=== PATIENT | male | born 1960 | race Caucasian/White ===

== ENCOUNTER 2024-02-08 19:47 | Emergency (ER) | payer OTHER, SELFPAY ==
[2024-02-08 19:48] VITALS: BP 121/72
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
[2024-02-08] MEDS: TYLENOL 1000 MG PO (23:21)
[2024-02-08 23:50] LABS: % Basophils 0.4 % (0-2); % Eosinophils 1.5 % (0-6); % Immature Granulocytes 0.3 % (0-0.5); % Monocytes 5.9 % (1.7-9.3); % Neutrophils 73.9 % (42.2-75.2); Absolute Eosinophils 0.1 10^3/uL (0-0.7); Absolute Lymphocytes 1.3 10^3/uL (1.2-3.4); Absolute Monocytes 0.4 10^3/uL (0.1-0.6); Absolute Neutrophils 5.4 10^3/uL (1.4-6.5); Hematocrit 39.5 % (39.0-52.0); Hemoglobin 13.9 g/dL (13.0-18.0); Mean Corp Hgb Conc. 35.2 g/dL (33.0-37.0); Mean Corpuscular Hgb 31.3 pg (27.0-31.0); Mean Platelet Volume 9.8 fL (7.4-10.4); Nucleated Red Blood Cells % 0 % (-); Platelet Count 194 10^3/uL (130-400); Red Blood Cell Count 4.44 10^6/uL (4.70-6.10); Red Cell Dist. Width 12.7 % (11.5-14.5); White Blood Cell Count 7.3 10^3/uL (4.8-10.8)
[2024-02-09 00:14] LABS: Blood Urea Nitrogen 28 mg/dl (9-20); Calcium 8.9 mg/dl (8.4-10.2); Carbon Dioxide 24 mmol/L (22-30); Chloride 107 mmol/L (98-107); Glucose 82 mg/dl (70-99); Potassium 4.1 mmol/L (3.5-5.1); Sodium 142 mmol/L (135-145); eGFR > 60.00
== END 2024-02-09 03:39 | disposition home or self-care (01) ==
LOC: EMR 19:47
PROVIDERS: Physician Assistant; EMERGENCY PHYSICIAN Emergency Medicine; FAMILY PHYSICIAN Family Medicine
DX: R07.89 Other chest pain (principal); S60.221A Contusion of right hand, initial encounter; S30.811A Abrasion of abdominal wall, initial encounter; R10.11 Right upper quadrant pain; M54.6 Pain in thoracic spine; M79.642 Pain in left hand; M79.641 Pain in right hand; V49.40XA Driver injured in collision with unspecified motor vehicles in traffic accident, initial encounter; Y92.410 Unspecified street and highway as the place of occurrence of the external cause; Z79.82 Long term (current) use of aspirin; Z85.46 Personal history of malignant neoplasm of prostate; Z90.79 Acquired absence of other genital organ(s); Z91.030 Bee allergy status
CPT/HCPCS: 99284; 71260; 73130; 74177; 80048; 85025; Q9967

== ENCOUNTER → 2024-03-21 18:45 | Outpatient (REF) | payer OTHER, SELFPAY | LOC: RAD 18:45 | PROVIDERS: ATTENDING PHYSICIAN Internal Medicine | DX: M65.842 Other synovitis and tenosynovitis, left hand (principal) | CPT/HCPCS: 73120 ==

== ENCOUNTER → 2024-04-29 11:45 | Outpatient (REF) | payer OTHER, SELFPAY | LOC: PAVMRI 11:45 | PROVIDERS: ATTENDING PHYSICIAN Internal Medicine; FAMILY PHYSICIAN Family Medicine | DX: S20.211A Contusion of right front wall of thorax, initial encounter (principal) | CPT/HCPCS: 73218 ==